=== PATIENT | female | born 1950 | race Caucasian/White ===

== ENCOUNTER 2024-06-08 16:22 | Outpatient (CLI) | payer MEDICARE, SELFPAY | END 2024-06-08 16:23 | disposition home or self-care (01) | PROVIDERS: PCP Family Medicine; Visit Provider Family Medicine | DX: E03.9 Hypothyroidism, unspecified (principal); K62.3 Rectal prolapse; M54.9 Dorsalgia, unspecified | CPT/HCPCS: 80053; 84443 ==

== ENCOUNTER 2024-07-12 11:20 | Outpatient (CLI) | payer MEDICARE, SELFPAY | END 2024-07-12 11:21 | disposition home or self-care (01) | LOC: NFLDREF 07-13 09:36 | PROVIDERS: PCP Family Medicine; Referring Provider Family Medicine; Visit Provider Family Medicine | DX: E78.00 Pure hypercholesterolemia, unspecified (principal) | CPT/HCPCS: 80061 ==

== ENCOUNTER 2024-07-24 09:48 | Outpatient (CLI) | payer MEDICARE, SELFPAY ==
--- NOTE | 2024-07-24 10:15 | CRLHL7_ITS ---
For Patients: As a result of the 21st Century Cures Act, medical imaging exams and procedure reports are released immediately into your electronic medical record. You may view this report before your referring provider. If you have questions, please contact your health care provider. EXAM: MRI OF THE RIGHT SHOULDER, WITHOUT CONTRAST CLINICAL INDICATION: Shoulder pain. PRIOR SURGERY: None reported. COMPARISON PLAIN FILMS: None available at time of interpretation. COMPARISON CROSS-SECTIONAL IMAGING STUDIES: None available at time of interpretation. TECHNICAL: Axial, sagittal oblique and coronal oblique T1, PD, PD FS and T2-weighted images. 1.5 Tatiana MR scanner. Shoulder surface coil. FINDINGS: GLENOHUMERAL JOINT: Effusion/Cyst: Small joint effusion. No synovitis. No paralabral or periarticular cyst or ganglion. Humeral Head Articular Cartilage: No osteochondral lesion or abnormality. Glenoid Articular Cartilage: No osteochondral lesion or abnormality. Loose Bodies: No appreciable loose bodies. Capsule: No convincing evidence of adhesive capsulitis or capsular injury. OSSEOUS STRUCTURES: No fracture, marrow edema or marrow replacement process. CORACOACROMIAL ARCH: Acromial Morphology: Type 1 acromial morphology. No abnormal lateral or anterior downward sloping of the acromion. No os acromiale. No significant subacromial spur. Lateral acromial thickness is 6 mm. Acromiohumeral Interval: The acromiohumeral interval is adequately patent. At its narrowest, the interval measures 5 mm. No abnormal thickening of the coracoacromial ligament. Coracohumeral Interval: The coracohumeral interval is normal. At its narrowest, the coracohumeral interval measures 10 mm. Coracoid index is less than 10 mm. ACROMIOCLAVICULAR JOINT REGION: AC Joint: Minor capsular edema with upper normal width. Ligaments: The coracoclavicular ligaments are intact. BURSAE: Subacromial-Subdeltoid: Moderate volume of fluid and some strandy synovitis. Subcoracoid: No abnormal bursal edema, thickening or bursal fluid. ROTATOR CUFF TENDONS AND MUSCLES AND DELTOID: Supraspinatus: Degenerative irregular full-thickness tearing anterior distal tendon with anterior to posterior greatest diameter 13 mm in greatest retraction less than a centimeter. Bursal tearing in the posterior distal tendon and footplate. Intermediate signal tendinosis proximal tendon with articular fraying. Grade 1 muscle atrophy. Some very subtle increased T2 signal. Infraspinatus: Tendinosis in the distal tendon without discrete tear. Some edema in the muscle. Minor grade 1 atrophy. Teres Minor: No tendinosis, tendon tearing, muscle atrophy or muscle edema. Subscapularis: Prominent tendinosis and interstitial tearing at the insertion and shallow fraying throughout the tendon. No muscle atrophy. Deltoid: No muscle atrophy or edema. BICEPS TENDON, LONG HEAD: Slight medial subluxation onto the inserting subscapularis suggesting partial tear in the rotator interval and biceps carolyn. Subluxed tendon as elongated morphology from partial tearing and marginal tendinosis. Small amount of tenosynovitis distally. Biceps anchor is intact. GLENOID LABRUM: Patchy intermediate signal mucoid change in degenerative tearing superior labrum. Remainder intact. OTHER FINDINGS: There is no abnormality within the suprascapular or spinoglenoid notches nor within the quadrilateral space. No axillary adenopathy or mass. IMPRESSION: 1. Full-thickness tear of the supraspinatus into the rotator interval. Prominent tendinosis and partial tearing proximal supraspinatus. 2. Partial disruption biceps carolyn with slight medial subluxation of the biceps. Mucoid degeneration and degenerative tearing superior labrum. 3. Moderately prominent tendinosis and shallow marginal tearing subscapularis. 4. Moderate infraspinatus tendinosis without significant tear. 5. Moderately large effusion between glenohumeral joint and subacromial/subdeltoid bursa. Dictated by Rolly Welch MD @ 07/24/2024 2:25:39 PM (Electronically Signed)
== END 2024-07-24 09:49 | disposition home or self-care (01) ==
PROVIDERS: PCP Family Medicine; Visit Provider Family Medicine
DX: M25.511 Pain in right shoulder (principal); M75.101 Unspecified rotator cuff tear or rupture of right shoulder, not specified as traumatic; S43.431A Superior glenoid labrum lesion of right shoulder, initial encounter; M25.411 Effusion, right shoulder; S46.911A Strain of unspecified muscle, fascia and tendon at shoulder and upper arm level, right arm, initial encounter
CPT/HCPCS: 73221

== ENCOUNTER 2024-08-17 06:02 | Day surgery (SDC) | payer MEDICARE, SELFPAY ==
[2024-08-17] VITALS (21 sets, daily range): BP systolic 103–157; BP diastolic 57–97; PULSE 81–92; RESP 15–18; TEMP 36.2–37.4; O2SAT 91–98; BMI 22.9
[2024-08-17] MEDS: MIDAZOLAM HCL 1 MG/ML inj IVP (06:11)
[2024-08-17] MEDS: fentaNYL 100 MCG/2 ML inj IVP (06:11)
[2024-08-17] MEDS: LACTATED RINGERS 1000 ML 1,000 ML 100 ML IV ×2 (06:15→10:50)
[2024-08-17] MEDS: SODIUM CHLORIDE 0.9 % (FLUSH) 10 ML SYRINGE IVF (06:53)
--- NOTE | 2024-08-17 07:17 | W.PM.H&PU ---
History & Physical Update History & Physical Update H&P Reviewed and patient assessed: No changes noted
--- NOTE | 2024-08-17 07:17 | PM.ORPRC ---
Procedure Note Date of procedure: 08/17/24 Procedure: PREOPERATIVE DIAGNOSES: 1. Right shoulder rotator cuff tear 2. Right acromioclavicular joint osteoarthritis POSTOPERATIVE DIAGNOSES: 1. Right shoulder rotator cuff tear - supraspinatus and upper subscapularis 2. Right acromioclavicular joint osteoarthritis NAME OF OPERATION: 1. Right shoulder arthroscopic rotator cuff repair (supraspinatus and upper subscapularis). 2. Right shoulder arthroscopic distal clavicle excision. 3. Right shoulder arthroscopic biceps tenodesis. 4. Right shoulder arthroscopic bursectomy, subacromial decompression/partial acromioplasty. SURGEON: Angelo Mendoza MD SINGE MACHINE OPERATOR: Mildred Avalos P.A.-C.. An virtual customer assistant was critical for this case to aide in patient positioning, suture manipulation, arm positioning, instrument positioning, and closure. ANESTHESIA: General plus preoperative supraclavicular block. IMPLANTS: Arthrex 4.75 mm knotless BioComposite Loop 'N' Tack Tenodesis implant; Arthrex BioComposite 4.75 mm knotless SwiveLock anchors x2; Arthrex 5.5 mm BioComposite SwiveLock anchors x2. COMPLICATIONS: None ESTIMATED BLOOD LOSS: 5 mL INDICATIONS: The patient is a pleasant, 73-year-old female who has experienced right shoulder pain and weakness that has been increasing in recent time. Physical exam and imaging were consistent with a rotator cuff tear. Given these findings and failure to improve with nonoperative management, recommendation was made for surgery. FINDINGS: Exam under anesthesia revealed stable shoulder with full range of motion. The diagnostic arthroscopy revealed grade 1 and grade 2 chondral changes of the glenoid and humeral head. There was partial articular sided tearing of the upper subscapularis with medial subluxation of biceps tendon. Mild tendinosis and partial-thickness tearing of the long head of the biceps tendon. Anterior, posterior, superior labrum were intact. Full-thickness tear of the supraspinatus which measured approximately 2 cm in the anterior-posterior direction and was minimally retracted. Infraspinatus was intact. No loose bodies were identified within the pouch or subscapularis recess. PROCEDURE: Following a thorough discussion of risks, benefits, and alternatives, consent was obtained and the operative shoulder was marked. A supraclavicular nerve block was performed by anesthesia staff in preop holding. The patient was brought to the operating room and placed supine on the operating table. Induction of anesthesia was completed, and patient was given IV Ancef preoperatively for prophylaxis. A surgical time-out was performed confirming patient identity, surgical site, and procedure. Patient was placed into the beach chair position. Head was placed in padded head baggage porter in neutral alignment, and all bony prominences were well padded. The operative shoulder and upper extremity were prepped and draped in the appropriate sterile fashion using ChloraPrep. Anterior, posterior, and lateral portal sites were injected with 0.25% Marcaine with epinephrine. The glenohumeral joint was injected with 40 mL of normal saline using and 18g spinal needle from a posterior approach. Posterior portal was established. Anterior portal was established after localization with a spinal needle and a 7.0 mm cannula was placed here. Diagnostic arthroscopy was then performed with findings as noted above. After diagnostic arthroscopy attention was 1st directed to the biceps tenodesis. A SwiftStitch Suture Passer was used to pass a FiberLink suture around and through the intra-articular portion of the long head of the biceps tendon. Biceps tenotomy was then performed at the attachment site superior labrum using arthroscopic scissor. Tenodesis was then completed by securing the FiberLink suture into the 4.75 mm knotless BioComposite SwiveLock anchor just proximal to the bicipital groove. Attention was then directed to repair of the upper subscapularis. The exposed footprint was debrided of soft tissue and lightly decorticated using the bone-cutting shaver. Knotless sutures were then passed through the upper subscapularis and tensioned securing the upper subscapularis back to its footprint. Remnant sutures were cut and removed. The subscapularis was visualized and confirmed to be anatomically reattached to its footprint. Camera was then moved to the subacromial space. A lateral portal was established after localization of spinal needle. Significant inflamed bursal tissue was encountered. A subacromial bursectomy was performed using combination of the motorized shaver and radiofrequency ablator. A subacromial decompression and acromioplasty were then performed using the bone-cutting shaver removing the downward sloping anterior acromion. The rotator cuff was thoroughly inspected and there was noted be a full-thickness tear of the supraspinatus which measured approximately 2 cm in the anterior-posterior direction was minimally retracted. The supraspinatus footprint was debrided of soft tissue and lightly decorticated with a bone-cutting shaver. A passport cannula was then placed into the lateral portal. Small stab incision was then placed lateral to the acromion. Through this incision a 2.6 mm knotless FiberTak anchor was placed into the anterior medial footprint of the supraspinatus. However, this anchor pulled out when tensioned and was subsequently replaced with a 4.75 mm knotless BioComposite SwiveLock anchor. A 2nd small stab incision was made lateral to the acromion. Through this incision, 4.75 mm knotless BioComposite SwiveLock anchor was placed into the posterior medial aspect of the supraspinatus footprint. Scorpion suture Passer in FiberLink suture were then used to passed suture through the rotator cuff tendon lateral to the musculotendinous junction. FiberLink was then used to shuttle each set of sutures through the rotator cuff. Medial row repair was then performed using the knotless sutures. Lateral row repair was then performed using two 5.5 mm BioComposite SwiveLock anchors. Prior to placement of the SwiveLock anchors, FiberLink suture was placed anteriorly and medially to secure further secure the rotator cuff. SwiveLock anchors were placed lateral to the supraspinatus footprint. Each SwiveLock anchor incorporated 1 set of sutures from the previous placed 2 medial row anchors and 1 FiberLink suture. After tensioning sutures and securing SwiveLock anchors in the position, excellent reduction of the rotator cuff tendon was achieved. Shoulder was then placed through range of motion rotator cuff was confirmed to be firmly fixed to its footprint. Remnant sutures were then cut and removed. Attention was then directed to the distal clavicle excision. 70 degree scope was placed into the lateral portal for visualization. Soft tissues of the distal clavicle were debrided with radiofrequency ablator. A distal clavicle excision was then performed using the 5.5 mm bur removing approximately 1 cm of the distal clavicle. After completion of the distal clavicle excision, excess fluid was drained, and cannulas instruments were removed from the subacromial space. Surgical incisions were then closed with 3-0 nylon simple interrupted sutures. Sterile dressings were applied and arm was placed into an abduction sling. Patient was then rotated back into the supine position, awoken from anesthesia and transferred to the PACU in stable condition. PLAN: 1. Discharged to home day of surgery. 2. Ice for pain and swelling. 3. Tylenol and oxycodone as needed for pain control. 4. Abduction sling at all times except for ROM and showering. -Remove sling several times daily for pendulum exercises finger, wrist, and elbow range of motion. 5. Follow-up in orthopedic clinic in 10-14 days for wound check and suture removal. 6. Will initiate formal physical therapy 2 weeks postoperatively per the standard rotator cuff repair protocol
--- NOTE | 2024-08-17 07:25 | SUR.PREOP ---
TIME?OUT:?0725 PT/RN/MDA?VERIFICATION?OF?SURGICAL?SITE,?PROCEDURE,?AND?CONSENT OBTAINED?PRIOR?TO?INVASIVE?PROCEDURE.r aaron edwards, pt and consent right shoulder
[2024-08-17] MEDS: CEFAZOLIN 2 GM INJ IVP (07:45)
[2024-08-17] MEDS: EPINEPHrine 1 MG in SODIUM CHLORIDE IRRIG SOLUTION 3,000 ML 9003 MG IRRIGATION ×7 (08:12→10:10)
--- NOTE | 2024-08-17 10:55 | W.ANESCHARGE ---
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
--- NOTE | 2024-08-17 11:57 | SUR.PHASEI ---
patient scoring 7 ian score. confirmed with receiving rn that it's ok to bring back to phase 2
--- NOTE | 2024-08-17 13:43 | P.NB_ITS ---
Nerve Block Nerve Block Time Seen by Provider: 07:28 Date Seen: 08/17/24 Type of block requested by surgeon for post-operative analgesia: supraclavicular Side: right Time out performed: Yes Verification of patient name: Yes Verification of date of : Yes Site marking: site marked Name of person performing procedure: Taj Continuous monitoring Was continuous monitoring of O2 sat, B/P, dispatcher refinery, recorded every 15 minutes?: Yes Procedure Checklist: sterile prep, needles and gloves Ultrasound guided. Images saved: Yes Medications given in 5ml increments after negative aspiration: Ropivicaine %: 0.5 mL: 20 Needle gauge: 22 Decadron (mg): 10 Precedex (mcg): 25 Patient tolerated procedure well: Yes Block Charges Block Charge (with Pro Fee): Brachial Plexus Use of Ultrasound Machine for Block: Yes- US Guidance/pain block
--- NOTE | 2024-08-17 13:43 | W.ANESCHARGE ---
Anesthesia Charges Start Date/Time Anesthesia Start Date: 08/17/24 Anesthesia Start Time: 07:34 Stop Date/Time Anesthesia Stop Date: 08/17/24 Anesthesia Stop Time: 10:56 Summary Extremes of Age - Over 70 or under 1: MDA
== END 2024-08-17 13:50 | disposition home or self-care (01) ==
LOC: OR 06:03
PROVIDERS: PCP Family Medicine; Visit Provider Orthopaedic Surgery
PROC: (CPT 29805; principal; 2024-08-17 07:30)
DX: M75.121 Complete rotator cuff tear or rupture of right shoulder, not specified as traumatic (principal); M19.011 Primary osteoarthritis, right shoulder; G89.18 Other acute postprocedural pain
CPT/HCPCS: 29827; 29828; 29826; 29824; 01630; 64415; 76942; 99100; C1713; J0171; J0330; J0690; J1100; J2250; J2371; J2405; J2704; J2795; J3010; J3490; J7120; L3670

== ENCOUNTER 2025-01-01 10:38 | Outpatient (CLI) | payer MEDICARE, SELFPAY ==
--- NOTE | 2025-01-01 11:00 | CRLHL7_ITS ---
For Patients: As a result of the Century Cures Act, medical imaging exams and procedure reports are released immediately into your electronic medical record. You may view this report before your referring provider. If you have questions, please contact your health care provider. INDICATION: Lung cancer screening. History of smoking. High risk patient with greater than 50 pack-year smoking history. TECHNIQUE: Low-dose lung cancer screening non-contrast CT chest. Dose reduction techniques were used. COMPARISON: None. FINDINGS: NODULES: 4.4 millimeter calcified granuloma left lower lobe. No additional nodules. LUNGS AND PLEURA: Emphysema. MEDIASTINUM: No enlarged lymph nodes. CORONARY ARTERY CALCIFICATION: Present. LIMITED UPPER ABDOMEN: Fatty atrophy of the pancreas. Incidental fat density within the right posterior lung base pleural space. MUSCULOSKELETAL: Postop changes to the right shoulder. Degenerative changes lower thoracic spine. IMPRESSION: Negative for lung cancer screening purposes. LUNG-RADS CATEGORY: 2: Benign. RADIOLOGIST RECOMMENDATION: Continue annual screening with low-dose CT chest in 12 months. Please note that all CT scans at this facility use dose modulation, iterative reconstruction, and/or weight-based dosing when appropriate to reduce radiation dose to as low as reasonably achievable. Dictated by Minh Pulido MD @ 01/01/2025 1:03:16 PM (Electronically Signed)
== END 2025-01-01 10:39 | disposition home or self-care (01) ==
LOC: CT 10:39
PROVIDERS: PCP Family Medicine; Visit Provider Family Medicine
DX: Z12.2 Encounter for screening for malignant neoplasm of respiratory organs (principal); Z87.891 Personal history of nicotine dependence
CPT/HCPCS: 71271

== ENCOUNTER 2025-04-03 12:41 | Outpatient (CLI) | payer MEDICARE, SELFPAY ==
--- NOTE | 2025-04-03 13:00 | CRLHL7_ITS ---
For Patients: As a result of the Century Cures Act, medical imaging exams and procedure reports are released immediately into your electronic medical record. You may view this report before your referring provider. If you have questions, please contact your health care provider. XR DXA Bone Mineral Density (BMD) Reason for exam: History of compression fracture. Screening. Current height (inches): 65.0 Weight (lbs.): 140.0 Menopause age: 54 Ethnicity: White 1. Have you had a previous hip or vertebral fracture? Yes. 2. Have you had any fractures during your adult life which did not result from significant trauma (e.g., auto accident)? Yes. 3. Did either of your parents have a hip fracture? No. 4. Do you smoke? No. 5. Have you ever taken Glucocorticoids? No. 6. Do you have rheumatoid arthritis? No. 7. Do you have secondary osteoporosis? No. 8. Do you drink 3 or more alcoholic drinks per day? No. 9. Are you being treated for osteoporosis? No. 10. Have you ever taken any of the following medications: Actonel, Evista, Fosamax, Miacalcin, Reclast, Boniva, Forteo, HRT (i.e., estrogen/hormone therapy), Protelos, Prolia, Vitamin D, Calcium, other ??? please specify. ANSWER: Yes; vitamin D and calcium. 11. Do you have any of the following medical conditions: Anorexia or bulimia, asthma or emphysema, end stage renal disease, hyperparathyroidism, any seizure disorders, cancer, inflammatory bowel diseases, hysterectomy, other ??? please specify. ANSWER: Yes; hysterectomy. 12. What was your maximum height (inches)? 67. 13. Do you perform weightbearing exercise regularly? No. 14. Do you regularly consume dairy products? Yes. 15. Do you drink caffeinated beverages? No. 16. At what age did your period start? 15. 17. Are you premenopausal? No. 18. How many full-term pregnancies have you had? 2. 19. Have you ever missed your period for more than 6 months in a row (not including or menopause)? Yes. TECHNIQUE: Bone mineral density study was performed using the [employer]. FINDINGS: The results of the study expressed as bone mineral density (BMD) are as follows: Lumbar Spine L3 to L4: BMD: 0.975 g/cm2. T-score: -1.1. Z-score: 1.2. Neck Left: BMD: 0.645 g/cm2. T-score: -1.8. Z-score: 0.1. Right: BMD: 0.700 g/cm2. T-score: -1.3. Z-score: 0.6. Total Left: BMD: 0.821 g/cm2. T-score: -1.0. Z-score: 0.6. Right: BMD: 0.758 g/cm2. T-score: -1.5. Z-score: 0.1. IMPRESSION: Osteopenia. TERESA SOTO M.D. Diagnostic/Nuclear Medicine Radiologist [email or web address] Transcribed: 4:[address]/Dictated by: Teresa Soto MD @ 04/04/2025 1:34:00 PM (Electronically Signed)
--- NOTE | 2025-04-03 13:40 | CRLHL7_ITS ---
For Patients: As a result of the Century Cures Act, medical imaging exams and procedure reports are released immediately into your electronic medical record. You may view this report before your referring provider. If you have questions, please contact your health care provider. INDICATION: bilateral screening mammogram, asymptomatic 74 y/o female COMPARISON: 03/29/2024, 11/25/2021, 10/07/2020 TECHNIQUE: CC and MLO views were obtained. These mammographic images have been obtained using full-field digital technique. These mammographic images were interpreted with the benefit of computer aided detection and tomosynthesis. BREAST COMPOSITION: There are scattered areas of fibroglandular density. FINDINGS: No suspicious findings. ASSESSMENT: BI-RADS 1 Negative RECOMMENDATION: Annual screening mammogram. A lay language report of this examination will be provided to the patient. Dictated by: Minh Pulido MD @ 04/05/2025 09:22:05 (Electronically Signed)
== END 2025-04-03 12:42 | disposition home or self-care (01) ==
LOC: RAD 12:42
PROVIDERS: PCP Family Medicine; Visit Provider Family Medicine
DX: Z12.31 Encounter for screening mammogram for malignant neoplasm of breast (principal); Z13.820 Encounter for screening for osteoporosis; M85.89 Other specified disorders of bone density and structure, multiple sites
CPT/HCPCS: 77063; 77067; 77080

== ENCOUNTER 2025-07-02 12:06 | Outpatient (CLI) | payer MEDICARE, SELFPAY | END 2025-07-02 12:07 | disposition home or self-care (01) | LOC: LKVREF 12:08 | PROVIDERS: PCP Family Medicine; Visit Provider Family Medicine | DX: E78.00 Pure hypercholesterolemia, unspecified (principal); E03.9 Hypothyroidism, unspecified; M81.0 Age-related osteoporosis without current pathological fracture; R53.83 Other fatigue | CPT/HCPCS: 80053; 80061; 84443 ==

== ENCOUNTER 2025-10-29 14:05 | Emergency (ER) | payer MEDICARE, SELFPAY ==
--- OUTSIDE RECORDS SUMMARY | 2025-10-29 14:09 | XMS_ITS | Clinical Summary ---
Author Organization [facility] Address [address] [place] [address] Care Team Providers Care Web Developer Programmer Name Role Phone Montse Lehman APRN, C.N.P., D.N.P., M.S.N. [place] Care Provider Source Comments Patient records contain information from all sites at [facility]. For routine questions regarding patient records, call [phone] during business hours, M-F 8:00 AM - 5:00 PM Central Time. Record requests for emergency care only can be directed to [phone] at any time.[facility] Allergies No known active allergies Medications * This document contains information received from the source organization and may not represent a complete record from that organization. aspirin [address] tablet Take 1 tablet by mouth daily. 4 Active aspirin-acetami nophen-caffeine (EXCEDRIN MIGRAINE) 250-250-65 mg per tablet Take 1 capsule by mouth every 8 (eight) hours as needed. Active multivitamin tablet Take 1 tablet by mouth. One a Day 50+ Active ascorbate calcium (VITAMIN C ORAL) 500 mg daily. 6 Active zinc gluconate 50 mg tablet Take 50 mg by mouth daily with breakfast. Active cyanocobalamin (VITAMIN B12) 250 mcg tablet Take 250 mcg by mouth daily. Active TURMERIC ORAL Take 500 mg by mouth. Active melatonin 5 mg tablet Take 5 mg by mouth. Takes 2 tablets at bedtime Active biotin (MERIBIN) 5 mg capsule Take 5 mg by mouth daily. Active omega 1-nar-zfq-fish oil 1,000 mg (120 mg-180 mg) capsule Take 1 capsule by mouth daily. Active fluticasone propion-salmete roL (Wixela Inhub) 100-50 mcg/actuation diskus inhaler Inhale 1 puff 2 (two) times a day. Rinse mouth with water after use to reduce aftertaste and incidence of candidiasis. Do not swallow. 60 each 11 4 Active Additional Information Patient taking differently:1 puff inhalationAs needed, Rinse mouth with water after use to reduce aftertaste and incidence of candidiasis. Do not swallow., Reported on 07/11/2024 acetaminophen-c affeine (EXCEDRIN_TENSI ON_HEADACHE) 500-65 mg per tablet Take 1 tablet by mouth every 6 (six) hours as needed for pain. Active pravastatin (PRAVACHOL) 20 mg tabletIndicatio ns:Hypercholest erolemia Take 1 tablet (20 mg total) by mouth daily. 90 tablet 3 4 Active levothyroxine 75 mcg tabletIndicatio ns:Hypothyroidi sm Take 1 tablet (75 mcg total) by mouth daily. 90 tablet 3 4 Active alendronate (Fosamax) 70 mg tablet TAKE 1 TABLET BY MOUTH EVERY 7 DAYS. TAKE WITH 8 OUNCES OF WATER, ON AN EMPTY STOMACH. REMAIN UPRIGHT OF 30 MINUTES 12 tablet 3 5 Active gabapentin (Neurontin) 300 mg capsuleIndicati ons:Restless Leg Syndrome TAKE 1 CAPSULE BY MOUTH 2 HOURS BEFORE BEDTIME, MAY INCREASE TO 2 CAPSULES IF NEEDED 180 capsule 5 Active Active Problems Problem Noted Date Diagnosed Date History Of Falling 07/11/2024 Restless Leg Syndrome 10/07/2020 Overview (10/07/2020): Maintained on gabapentin at bedtime Assessment & Plan (10/07/2020 12:21 PM INSTRUMENTAL TEACHER): Well controlled on current dose of gabapentin 300 mg daily. Continue with this medication. Osteopenia 10/07/2020 Overview (10/07/2020): Last bone density scan done July 2019 Assessment & Plan (10/07/2020 12:22 PM INSTRUMENTAL TEACHER): Continue with calcium and vitamin-D supplements. Plan on rechecking bone density scan in 2023. Hypothyroidism 10/12/2018 Overview (10/06/2020): Maintained on levothyroxine Assessment & Plan (10/06/2020 9:11 AM INSTRUMENTAL TEACHER): TSH due to be updated and ordered today Incomplete Bladder Emptying 09/03/2014 Incontinence Urinary Stress And Urge 09/03/2014 Colitis Collagenous 07/25/2014 Assessment & Plan (10/07/2020 12:21 PM INSTRUMENTAL TEACHER): Overall stable. No longer requiring oral budesonide. Using loperamide once daily and this seems to control her symptoms. Follow-up at with GI as needed. Diverticulosis Colon 06/25/2014 Incontinence Fecal 06/25/2014 Prolapse Pelvic Floor Global 09/28/2011 Hyperlipidemia 02/05/2011 Overview (10/06/2020): Maintained on pravastatin Assessment & Plan (10/07/2020 12:21 PM INSTRUMENTAL TEACHER): Lipid panel ordered to be done with fasting labs. Smoking Tobacco Use Personal History 01/22/2011 Bronchitis Chronic 09/17/2010 Overview (10/07/2020): Maintained on Advair. Using albuterol as needed Assessment & Plan (10/07/2020 12:21 PM INSTRUMENTAL TEACHER): Reports symptoms are stable without any worsening shortness of breath. She has not needed her albuterol in quite some time. Currently using Advair once daily and feels this is adequate in controlling her symptoms. Resolved Problems Problem Noted Date Diagnosed Date Resolved Date Fracture Wrist Closed Subsequent Left 04/29/2023 01/26/2024 Fracture Wrist Closed Subsequent Right 04/29/2023 01/26/2024 Fracture Vertebra Compressio n Lumbar Trauma Closed Initial 06/25/2022 01/26/2024 Pain Arm Right 10/07/2020 10/28/2021 Assessment & Plan (10/07/2020 12:22 PM INSTRUMENTAL TEACHER): Intermittent right arm pain with some decreased range of motion. Symptoms most consistent with bicep tendinitis. We reviewed conservative management for this including stretching, fgbc-jdo-faugcxq pain medications such as Tylenol ibuprofen heat and ice. I also provided her with a referral today for physical therapy if symptoms continue to persist. Encounters Date Type Department Care Team Description 10/29/[address] [facility] PCP [facility] Montse Kidd APRN, C.N.P., D.N.P., M.S.N. Hypothyroidism 07/31/[address] [facility] PCP [facility] Montse Kidd APRN, C.N.P., D.N.P., M.S.N. Screening Mammogram Breast Cancer from Last 3 Months Immunizations Immunization Administration Dates Next Due DTaP (Infanrix, Tripedia) 03/31/2007 H1N1 Inj 11/11/2009 HZV (ZOSTAVAX) 09/28/2012 Influenza Split 09/27/2006, 5,10/29/2004,2000,11/22/2000 Influenza high dose QV(65 ye ars or older) (PF) 08/10/2023,08/31/2022,08/25/2021,2019 Influenza, Seasonal, Injectable 10/05/2007 Influenza, Unspecified 09/23/2016,2014,09/17/2014,2012,08/29/2012,08/26/2011,09/07/2010 PCV13 04/01/2015 PPSV23 11/26/2021,06/11/2016 RZV (SHINGRIX) 09/14/2019,06/13/2019 SARS-COV-2 (COVID-19) - MODE RNA (12 YEARS AND OLDER) Fall Seasonal 01/26/2024 SARS-COV-2 (COVID-19) - MODERNA(Discontinued) 02/24/2021,01/27/2021 Tdap 07/12/2025,06/11/2016,03/31/2007 influenza trivalent high dos e (HD)(PF) 08/31/2025,07/29/2024,08/31/2020,2018,08/30/2018 influenza trivalent vaccine (6 months and older)(PF) 09/08/2009,09/26/2008 influenza vaccine quad (FLUZONE/FLUARIX) (6 months and older)(PF) 09/02/2017,09/23/2016,08/30/2015,2008,09/08/2009,09/26/2008,10/05/2007,1 ,10/12/2005,10/29/2004, 001,11/22/2000 Family History Medical History Relation Name Comments No Known Problems Brother 1 Marty No Known Problems Brother 2 Adrien No Known Problems Daughter Lung disease Father Smoker Father Crohn's disease Mother Transient ischemic attack Mother No Known Problems Sister No Known Problems Son Relation Name Status Comments Brother 1 Marty Alive Brother 2 Adrien Alive Daughter Alive Father Mother Sister Alive Son Alive Social History Tobacco Use Types Packs/Day Years Used Date Smoking Tobacco: Never Cigarettes 0 Qu it: 2019 Passive Smoke Exposure: Yes Smokeless Tobacco: Never Tobacco Cessation:Counseling Given: Not Answered Comments:Started smoking cigarettes age 15 Alcohol Use Standard Drinks/Week Comments Yes 2 (1 standard drink = 0.6 oz pur e alcohol) glass a wine nightly [facility] [employer] Answer Date Recorded In the past 12 months has e [employer], gas, oil, or water [employer] threatened to shut off services in your home? No 03/29/2024 Humiliation, Afraid, Rape, and Kick questionnair e Answer Date Recorded Within the last year, have y ou been afraid of your partner or ex-partner? No 06/22/2022 Within the last year, have y ou been humiliated or emotionally abused in other ways by your partner or ex-partner? No Within the last year, have y ou been kicked, hit, slapped, or otherwise physically hurt by your partner or ex-partner? No 06/22/2022 Within the last year, have y ou been raped or forced to have any kind of sexual activity by your partner or ex-partner? No 06/22/2022 Hunger Vital Sign Answer Date Recorded Within the past 12 months, y ou worried that your food would run out before you got the money to buy more. Never true 03/29/20 24 Within the past 12 months, t he food you bought just didn't last and you didn't have money to get more. Never true 03/29/2024 PRAPARE - Transportation Answer Date Re corded In the past 12 months, has l ack of transportation kept you from medical appointments or from getting medications? No 12/2023 In the past 12 months, has l ack of transportation kept you from meetings, work, or from getting things needed for daily living? No 03/29/2024 Housing Stability Answer Date Recorded What is your living situation today? I have a [facility] place to live 03/29/2024 Education Answer Date Recorded What is the highest level of school you have completed or the highest degree you have received? 12th grade 06/13/2019 Comments No Sex and Gender Information Value Date Recorded Sex Assigned at Female 10/11/2018 9:16 AM INSTRUMENTAL TEACHER Legal Sex Female 4:11 AM INSTRUMENTAL TEACHER Gender Identity Female 10/11/2018 9:16 AM INSTRUMENTAL TEACHER Sexual Orientation Straight 10/11/2018 9: 16 AM INSTRUMENTAL TEACHER Occupation Industry Job Start Date Job End Date Not on file Not on file Not on file Not on file Last Filed Vital Signs Vital Sign Reading Time Taken Comments Blood Pressure 115/76 07/11/2024 2:46 PM CDT Pulse 97 07/11/2024 2:46 PM CDT Temperature 37.1 C (98.8 F) 07/11/2024 2:46 PM CDT Respiratory Rate 16 04/03/2024 10:5 6 AM CDT Oxygen Saturation 95% 04/03/2024 10: 56 AM CDT Inhaled Oxygen Concentration - - Weight 61.6 kg (135 lb 12.9 oz) 07/11/2024 2:46 PM CDT Height 166 cm (5' 5.35) 04/03/2024 10: 56 AM CDT Body Mass Index 22.35 04/03/2024 10:56 AM CDT Plan of Treatment Health Maintenance Due Date Last Done Comments CT Colonography 1950 Tobacco Cessation counseling 12/24/2020 12/24/2019 Visit: Medicare Annual Wellness 02/03/2024 02/01/2023 Depression Screening (Annual PHQ-2) 11/28/2024 Fall Risk Screen (Annual) 11/28/2024 Mammogram 03/29/2025 03/29/2024, 10/29, 10/07/2020, Additional history exists Thyroid Stimulating Hormone (TSH) test for thyroid function 05/29/2025 05/29/2024, 03/29/2024, 02/01/2023, Additional history exists Visit: Annual, age 65+ (or Medicare and <65) 07/11/2025 07/11/2024 COVID-19 Vaccine ( season) 2025 07/29/2024, 01/26/2024, 08/31/2022, Additional history exists Cologuard 02/27/2027 02/28/2024 Fasting Glucose for Diabetes Screening 03/29/2027 03/29/2024, 10/20/2020, 06/22/2019, Additional history exists Lipid (Cholesterol) Screening 03/29/2029 03/29/2024, 02/01/2023, 10/28/2021, Additional history exists Colonoscopy 04/11/2031 04/11/2024, 06/26/2014 Colorectal Cancer Surveillance 04/11/2031 DTaP,Tdap,and Td Vaccines (5 - Td or Tdap) 07/12/2035 07/12/2025, 06/11/2016, 03/31/2007, Additional history exists Hepatitis C Screening Completed 10/11/2018 Zoster Vaccines Completed 09/14/2019, 05/28, 09/28/2012 Pneumococcal vaccine (50+ years) Completed 11/26/2021, 06/11/2016, 04/01/2015 Colonoscopy After Positive Cologuard Discontinued 04/11/2024 Influenza Vaccine Completed 08/31/2025, , 08/10/2023, Additional history exists IPV Vaccines Aged Out No longer eligi ble based on patient's age to complete this topic Procedures Procedure Name Priority Date/Time Associated Diagnosis Comments THYROID-STIMULATING HORMONE-SENSITIVE (S-TSH) Routine 05/29/2024 10:34 AM CDT Hypothyroidism GLUCOSE, FASTING, S/P Routine 03/29/2024 10:47 AM CDT Hypothyroidism Hyperlipidemia Bronchitis Chronic (HCC) Osteopenia Restless Leg Syndrome Colitis Collagenous Prolapse Pelvic Floor Global Screening Mammogram Breast Cancer Screening Examination Diabetes Mellitus LIPID PANEL, S Routine 03/29/2024 10:47 AM CDT Hypothyroidism Hyperlipidemia Bronchitis Chronic (HCC) Osteopenia Restless Leg Syndrome Colitis Collagenous Prolapse Pelvic Floor Global Screening Mammogram Breast Cancer Screening Examination Diabetes Mellitus BI BREAST SCREENING BILATERAL WITH TOMOSYNTHESIS RAD - Routine (most inpatients and all outpatients) 03/29/2024 10:18 AM CDT Hypothyroidism Hyperlipidemia Bronchitis Chronic (HCC) Osteopenia Restless Leg Syndrome Colitis Collagenous Prolapse Pelvic Floor Global Screening Mammogram Breast Cancer Screening Examination Diabetes Mellitus COLOGUARD Routine 02/28/2024 9:00 AM CDT Screening Cancer Colon HCV AB SCRN W/REFLEX TO HCV PCR, S Routine 10/11/2018 10:30 AM INSTRUMENTAL TEACHER Screening Test Laboratory COLONOSCOPY Routine 06/26/2014 9:07 AM CDT from Last 3 Months or Most Recently Relevant to Health Maintenance Results * S-TSH (Thyroid-Stimulating Hormone - Sensitive) (05/29/2024 10:34 AM CDT) TSH, Sensitive 0.5 0.3 - 4.2 mIU/L 05/29/2024 11:30 AM CDT [facility] Blood (Blood, Venous) 05/29/2024 10:34 AM CDT 05/29/2024 10:47 AM CDT us Lilia Bolaños APRN, C.N.P., D.N.P. LAB BLOOD AD D-ON Final Result [facility] [address] [place] [address], [place] [facility] [facility] [place] [address] [place] [address] * (ABNORMAL) Lipid Panel (03/29/2024 10:47 AM CDT) Triglycerides 169(H) mg/dL 03/29/2024 11:30 AM CDT OWAT Comment: ----REFERENCE VALUE---- Normal: <150 mg/dL Borderline High: 150-199 mg/dL High: 200-499 mg/dL Very High: > or =500 mg/dL Cholesterol, Total 172 mg/dL 2023 11:30 AM CDT OWAT Comment: ----REFERENCE VALUE---- Desirable: < 200 mg/dL Borderline High: 200 - 239 mg/dL High: > or = 240 mg/dL Cholesterol, LDL, Calculated 90 mg/dL 03/29/2024 11:30 AM CDT [facility] Comment: ----REFERENCE VALUE---- Desirable: <100 mg/dL Above Desirable: 100-129 mg/dL Borderline High: 130-159 mg/dL High: 160-189 mg/dL Very High: >=190 mg/dL ----ADDITIONAL INFORMATION---- LDL cholesterol calculated using the Valladares/NIH equation. Cholesterol, HDL 53 >=50 mg/dL 03/29/20 11:30 AM CDT OWAT Cholesterol, Non-HDL, Calculated 119 mg/dL 03/29/2024 11:30 AM CDT [facility] Comment: ----REFERENCE VALUE---- Desirable: <130 mg/dL Above Desirable: 130-159 mg/dL Borderline High: 160-189 mg/dL High: 190-219 mg/dL Very High: > or =220 mg/dL Fasting (8 HR or more) Yes 03/29/2024 10:58 AM CDT [facility] Blood (Blood, Peripheral Draw) 03/29/2024 10:47 AM CDT 03/29/2024 10:58 AM CDT us Montse Lehman APRN, C.N.P., D.N.P., M.S.N. LAB B LOOD ADD-ON Final Result [facility] [address] [place] [address], [facility] OW[facility] [place] [address] [place] [address] * Glucose, Fasting (03/29/2024 10:47 AM CDT) Glucose, P 91 70 - 100 mg/dL 03/29/2024 11:30 AM CDT OW[facility] Last Intake 17 hr 03/29/2024 10:59 AM CDT [facility] Blood (Blood, Venous) 03/29/2024 10:47 AM CDT 03/29/2024 10:58 AM CDT us Montse Lehman APRN, C.N.P., D.N.P., M.S.N. LAB B LOOD NON ADD-ON Final Result [facility] [address] [place] [address], [place] [facility] [place] [address] [place] [address] * BI Breast Screening Bilateral with Tomosynthesis (03/29/2024 10:18 AM CDT) Anatomical Region Laterality Modality Breast, Breast Imaging RST L OS, Breast Imaging ARZ LOS, Breast Imaging FLA LOS Bilateral Mammography Impressions 03/29/2024 10:47 AM CDT Negative. RECOMMENDATION: Annual Screening Mammogram ASSESSMENT: BI-RADS: 1: Negative. Narrative 03/29/2024 10:47 AM CDT EXAM: BI BREAST SCREENING BILATERAL WITH TOMOSYNTHESIS Current study was evaluated with a Computer Aided Detection (CAD) system. INDICATION: Screening mammogram. COMPARISON: Prior exam(s) were available and reviewed for comparison. DENSITY: b. There are scattered areas of fibroglandular density. FINDINGS: No mammographic findings of malignancy. Procedure Note José Luis Rg M.D. - 03/29/2024 EXAM: BI BREAST SCREENING BILATERAL WITH TOMOSYNTHESIS Current study was evaluated with a Computer Aided Detection (CAD) system. INDICATION: Screening mammogram. COMPARISON: Prior exam(s) were available and reviewed for comparison. DENSITY: b. There are scattered areas of fibroglandular density. FINDINGS: No mammographic findings of malignancy. IMPRESSION: Negative. RECOMMENDATION: Annual Screening Mammogram ASSESSMENT: BI-RADS: 1: Negative. us Montse Lehman APRN, C.N.P., D.N.P., M.S.N. IMG B I PROCEDURES Final Result * (ABNORMAL) Cologuard - Sent Out Lab (02/28/2024 9:00 AM CDT) Result Positive( A) Negative 03/04/2024 9:12 AM CDT [facility] Comment: POSITIVE TEST RESULT. A positive Cologuard result should be followed with a colonoscopy or visual examination of the colon. The normal value (reference range) for this assay is negative. TEST DESCRIPTION: Composite algorithmic analysis of stool DNA-biomarkers with hemoglobin immunoassay. Quantitative values of individual biomarkers are not reportable and are not associated with individual biomarker result reference ranges. Cologuard is intended for colorectal cancer screening of adults of either sex, 45 years or older, who are at average-risk for colorectal cancer (CRC). Cologuard has been approved for use by the U.S. FDA. The performance of Cologuard was established in a cross sectional study of average-risk adults aged 50-84. Cologuard performance in patients ages 45 to 49 years was estimated by sub-group analysis of near-age groups. Colonoscopies performed for a positive result may find as the most clinically significant lesion: colorectal cancer [4.0%], advanced adenoma (including sessile serrated polyps greater than or equal to 1cm diameter) [20%] or non- advanced adenoma [31%]; or no colorectal neoplasia [45%]. These estimates are derived from a prospective cross-sectional screening study of 10,000 individuals at average risk for colorectal cancer who were screened with both Cologuard and colonoscopy. (Eduardo Love al, N Engl J Med 2014;370(14):7882-0365.) Cologuard may produce a false negative or false positive result (no colorectal cancer or precancerous polyp present at colonoscopy follow up). A negative Cologuard test result does not guarantee the absence of CRC or advanced adenoma (pre-cancer). The current Cologuard screening interval is every 3 years. ([place] Cancer Society and U.S. Multi-Society Task Force). Cologuard performance data in a 10,000 patient pivotal study using colonoscopy as the reference method can be accessed at the following location: www.[employer]/results. Additional description of the Cologuard test process, warnings and precautions can be found at www.cologuard.com. Stool (Stool) 02/28/2024 9:0 0 AM CDT 02/29/2024 1:31 PM CDT us Montse Lehman APRN, C.N.P., D.N.P., M.S.N. LAB BODY FLUIDS AND STOOLS ORDERABLES Final Result Performing Organization Address City/[facility]/ZIP Co de Phone Number [employer] [address] [place] [id number] [facility] [employer] [address] [place] [address], [address] [place] [address] * HCV Ab Scrn w/Reflex to HCV PCR, Serum (10/11/2018 10:30 AM INSTRUMENTAL TEACHER) HCV Ab Screen, S Negative Negative 10/12/2018 7:59 AM INSTRUMENTAL TEACHER [facility] Comment:Iotzan-sz-edeiob rat io is <1.00. Blood (Blood, Venous) 10/11/2018 10:30 AM INSTRUMENTAL TEACHER 10/12/2018 6:41 AM INSTRUMENTAL TEACHER us Janice Saavedra M.D. LAB MICROBIOLOGY - BLOOD ORDERABLES Final Result [facility] [address] [address] * Colonoscopy (06/26/2014 9:07 AM CDT) Anatomical Region Laterality Modality Other 06/26/2014 9:07 AM CDT us Harinder Angelo M.D. GI PROCEDURE ORDERABLES Fin al Result from Last 3 Months or Most Recently Relevant to Health Maintenance Insurance [facility] Care Teams Web Developer Programmer Relationship Specialty Start Date End Date Montse Lehman APRN, C.N.P., D.N.P., M.S.N. [address] [place] [id number] PCP - General Internal Medicine 11/07/23
--- OUTSIDE RECORDS SUMMARY | 2025-10-29 14:09 | XMS_ITS | Encounter Summary ---
Author Organization [facility] Address [address] [place] [address] Care Team Providers Care Interior Surface Insulation Worker Name Role Phone Montse Lehman APRN, C.N.P., D.N.P., M.S.N. [facility] Care Provider Encounter Details Date Type Department Care Team (Late st Contact Info) Description 10/29/2025 Orders Only [facility] PCP [facility] Montse Lehman APRN, C.N.P., D.N.P., M.S.N. [address] [place] [phone] Hypothyroidism Social History Tobacco Use Types Packs/Day Years Used Date Smoking Tobacco: Never Cigarettes 0 Qu it: 2019 Passive Smoke Exposure: Yes Smokeless Tobacco: Never Comments:Started smoking cig arettes age 15 Alcohol Use Standard Drinks/Week Comments Yes 2 (1 standard drink = 0.6 oz pur e alcohol) glass a wine nightly [facility] Utilities Answer Date Recorded In the past 12 months has [employer], gas, oil, or water [employer] threatened to shut off services in your [...] your living situation today? [facility] a [facility] place to live 03/29/2024 Education Answer Date Recorded What is the highest level of school you have completed or the highest degree you have received? 12th grade 06/13/2019 Comments No Sex and Gender Information Value Date Recorded Sex Assigned at Female 10/11/2018 9:16 AM TOURING PRODUCTION MANAGER Legal Sex Female 4:11 AM TOURING PRODUCTION MANAGER Gender Identity Female 10/11/2018 9:16 AM TOURING PRODUCTION MANAGER Sexual Orientation Straight 10/11/2018 9: 16 AM TOURING PRODUCTION MANAGER Occupation Industry Job Start Date Job End Date Not on file Not on file Not on file Not on file documented as of this encounter Plan of Treatment Scheduled Orders Name Type Priority Associated Diagnoses Orde r Schedule S-TSH (Thyroid-Stimulating Hormone - Sensitive) Lab Routine Hypothyroidism Expected: 11/12/2025, Expires: 04/17/2026 documented as of this encounter Visit Diagnoses Diagnosis Hypothyroidism documented in this encounter Care Teams Interior Surface Insulation Worker Relationship Specialty Start Date End Date Montse Lehman APRN, C.N.P., D.N.P., M.S.N. [address] [place] [phone] PCP - General Internal Medicine 11/07/23 documented as of this encounter
--- OUTSIDE RECORDS SUMMARY | 2025-10-29 14:09 | XMS_ITS | Clinical Summary ---
Author Organization [facility] Address [address] [place] [id number] Care Team Providers Care Automotive Teacher Name Role Phone Montse Lehman NP Primary Care Provider [phone] Allergies No known active allergies Medications aspirin 81 mg tabletIndicat ions:myocardi al infarction prevention Take 81 mg by mouth once daily with a meal. Indications: MYOCARDIAL INFARCTION PREVENTION Act kaelyn ACETAMINOPHEN /CAFFEINE (EXCEDRIN TENSION HEADACHE ORAL)Indicati ons:headaches . Take 1 capsule by mouth every 6 hours if needed. Indications: headaches. Active multivitamin (MVI) tabletIndicat ions:vitamin deficiency prevention Take 1 tablet by mouth once daily. Indications: VITAMIN DEFICIENCY PREVENTION Act kaelyn pravastatin (PRAVACHOL) 20 mg tabletIndicat ions:hypercho lesterolemia Take 20 mg by mouth at bedtime. Indications: HYPERCHOLESTEROLEMIA Acti ve CHOLECALCIFER OL, VITAMIN D3, (VITAMIN D-3 ORAL)Indicati ons:vitamin d supplement Take 1,000 Units by mouth 2 times daily. Indications: vitamin d supplement Active albuterol HFA (PROAIR HFA) 90 mcg/actuation inhalerIndica tions:wheezin g or shortness of breath Inhale 2 Puffs by mouth 4 times daily if needed. Indications: wheezing or shortness of breath Active aspirin-aceta minophen-caff eine (EXCEDRIN EX STR) 250-250-65 mg Take 1 Capsule by mouth every 8 hours if needed. Active Biotin 5 mg capsule Take 5 mg by mouth once daily. Active cyanocobalami n (VITAMIN B12) 250 mcg tablet Take 250 mcg by mouth once daily. Active DOCOSAHEXAENO IC ACID ORAL Take 1 Capsule by mouth once daily. Active fluticasone propion-salme teroL (ADVAIR) 100-50 mcg/dose diskus inhaler Inhale 1 Puff by mouth two times daily. 01/26/20 24 Active gabapentin (NEURONTIN) 300 mg capsule TAKE 1 CAPSULE BY MOUTH 2 HOURS BEFORE BEDTIME (MAY INCREASE TO 2 CAPSULES IF NEEDED) 02/23/20 24 Active levothyroxine (SYNTHROID) 88 mcg tablet Take 88 mcg by mouth once daily. 03/29/20 24 Active melatonin 5 mg tab tablet Take 5 mg by mouth at bedtime. Active zinc gluconate 50 mg tablet Take 50 mg by mouth once daily. Active Active Problems Problem Noted Date Diagnosed Date History of falling 07/11/2024 Restless leg syndrome 10/07/2020 Overview (07/12/2025): Maintained on gabapentin at bedtime Osteopenia 10/07/2020 Overview (07/12/2025): Last bone density scan done July 2019 Hypothyroidism 10/12/2018 Overview (07/12/2025): Maintained on levothyroxine Mixed stress and urge urinary incontinence 09/03 Incomplete bladder emptying 09/03/2014 Collagenous colitis 07/25/2014 Incontinence of feces 06/25/2014 Diverticulosis of colon 06/25/2014 Uterine prolapse without mention of vaginal wall prolapse 09/28/2011 Hyperlipidemia 02/05/2011 Overview (07/12/2025): Maintained on pravastatin Personal history of tobacco use, presenting hazards to health 01/22/2011 Bronchitis, chronic 09/17/2010 Overview (07/12/2025): Maintained on Advair. Using albuterol as needed Immunizations Immunization Administration Dates Next Due Influenza A (H1N1), Inactiva rachel (Age >=3 Years) 11/11/2009 Influenza, IIV3 (Age >=3 years) 08/29/2012,08/26,09/08/2009 Tdap 07/12/2025,03/31/2007 Zoster (Zostavax-ZVL, live) 09/28/2012 Social History Tobacco Use Types Packs/Day Years Used Date Smoking Tobacco: Every Day Cigarettes Comments:quit one year ago Alcohol Use Standard Drinks/Week Comments No 0 (1 standard drink = 0.6 oz pur e alcohol) Interpersonal Safety Answer Date Record ed Are you being hit, kicked, p ushed or yelled at (see row info)? 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 Gender Identity Not on file Sexual Orientation Not on file Obstetrics History Last Filed Vital Signs Vital Sign Reading Time Taken Comments Blood Pressure 158/84 07/12/2025 9:11 PM CDT Pulse 78 07/12/2025 9:11 PM CDT Temperature 36.5 C (97.7 F) 07/12/2025 7:30 PM CDT Respiratory Rate 16 07/12/2025 9:11 PM CDT Oxygen Saturation 96% 07/12/2025 9:11 PM CDT Inhaled Oxygen Concentration - - Weight 68 kg (150 lb) 07/12/2025 7:27 PM CDT Height 167.6 cm (5' 6) 07/12/2025 7:27 PM CDT Body Mass Index 24.21 07/12/2025 7:27 PM CDT Plan of Treatment Health Maintenance Due Date Last Done Comments Depression screening for age 12+ 1964 BMI (ht and wt on same day) for age 18+ 1970 Hepatitis C screening for age 18-79 1970 Pneumococcal series for age 50+ (1 of 2 - PCV) 1971 Lipids for age 45-75 1997 Mammogram for age 45-75 1997 RSV vaccine for adults or (1 - Risk 50-74 years 1-dose series) 2002 Zoster (shingles) series for age 50+ (2 of 3) 11/23/2012 09/28/2012 DEXA/DXA scan for age 65+ 2017 COVID-19 vaccine series ( season) 2025 07/29/2024, 01/26/2024, 08/31/2022, Additional history exists Influenza Vaccine (#1) 2025 2, 08/26/2011, 09/08/2009 Colonoscopy through age 75 04/11/2034 04/11/2024 Tetanus booster 07/12/2035 07/12/2025, 03/31/2007 Hepatitis B series for 19+ Aged Out N o longer eligible based on patient's age to complete this topic Medical Devices Implanted Type Area Metal Buffer Device Identifier Shelf Expiration Date Model / Serial / Lot Sling Miniarc Precise - [id number] Implanted:Qty: 1 on 09/27/2011 at [facility] [employer] 06/22/2014 [id number] / / [id number] Procedures Procedure Name Priority Date/Time Associated Diagnosis Comments COLONOSCOPY 04/11/2024 7:19 AM CDT from Last 3 Months or Most Recently Relevant to Health Maintenance Results * COLONOSCOPY (04/11/2024 7:19 AM CDT) 04/11/2024 7:19 AM CDT Narrative Transcriptions Joanne Dallas MD - 04/11/2024 8:38 AM CDT Patient Name: Eneida Melchor Procedure Date: 04/11/2024 Gender: Female Date of : 1950 Admit Type: Ambulatory Procedure: Colonoscopy Proceduralist: Joanne Payne MD Referring MD: Joanne Payne MD Indications/Pre-Op Diagnosis: Screening for colorectal malignant neoplasm, Positive cologuard. Rectal prolapse Medications: Monitored Anesthesia Care Procedure Description: The procedure, indications, potential complications, (bleeding, perforation, infection, adverse medication reaction, missed lesionsor polyps) and alternatives available were explained to the patient, who appeared to understand and indicated this. Opportunity for questionswas provided and informed consent obtained. The endoscope [id number] was passed through the anus and advanced to the cecum, identified by appendiceal orifice andileocecal valve. The colonoscopy was performed without difficulty. The patient tolerated the procedure well. The quality of the bowel preparationwas evaluated using the BBPS ([place] Bowel Preparation Scale) with scores of: Right Colon = 3, Transverse Colon = 3 and Left Colon = 3 (entire mucosa seen well with no residual staining, small fragments of stoolor opaque liquid). The total BBPS score equals 9. Complications: No immediate complications. Estimated blood loss: Minimal. Estimated Blood Loss & Specimen: Specimen collected: Yes and sent to Laboratory Findings: The perianal and digital rectal examinations were normal. Multiple diverticula were found in the sigmoid colon. Mucosa of ascending colon with minute areas of blood consistent with insufflation reaction. Biopsies taken with cold jumbo forceps for histology. Biopsies were taken with a cold forceps for histology. The exam was otherwise without abnormality on direct and retroflexion views. A scattered area of mildly erythematous mucosa was found in therectum. Consistent with irriation from chronic rectal prolapse Impressions/Post-Op Diagnosis: - Diverticulosis in the sigmoid colon. - The examination was otherwise normal on direct and retroflexionviews. - Erythematous mucosa in the rectum. Recommendation: - Await pathology results. - Dr. Pyane's office will call you with results and follow up instructions Moderate Sedation: see anesthesia report Joanne Payne MD 04/11/2024 8:38:09 AM This report has been signed electronically. Note Initiated On: 04/11/2024 7:19 AM Joanne Diallo MD PROCEDURE ORD Fin al Result from Last 3 Months or Most Recently Relevant to Health Maintenance Insurance [id number] [facility] [place] [id number] BLUE CROSS MEDICARE ADVANTAGE MR MEDICARE PART A HB ONLY Advance Directives * Full Code (Latest Code Status on File) Date Activated Date Inactivated Comments 04/11/2024 7:11 AM 04/11/2024 11:41 AM Question Answer Comments Code Status Discussion: Not Discussed * Full Code Date Activated Date Inactivated Comments 10/16/2012 9:07 AM 10/16/2012 2:24 PM * Full Code Date Activated Date Inactivated Comments 10/06/2012 7:52 AM 10/06/2012 7:54 PM * Full Code Date Activated Date Inactivated Comments 09/27/2011 2:42 PM 09/28/2011 2:57 PM * Full Code Date Activated Date Inactivated Comments 09/27/2011 10:26 AM 09/27/2011 2:42 PM Care Teams Automotive Teacher Relationship Specialty Start Date End Date Montse Lehman NP [address] [place] [address] PCP - General Nurse Practitioner - Family 03/22/24
[2025-10-29 14:11] VITALS: BP 175/104; PULSE 85; RESP 16; TEMP 36.8; O2SAT 92; BMI 27.8
--- NOTE | 2025-10-29 14:45 | CRLHL7_ITS ---
For Patients: As a result of the Century Cures Act, medical imaging exams and procedure reports are released immediately into your electronic medical record. You may view this report before your referring provider. If you have questions, please contact your health care provider. INDICATION: Episode of confusion TECHNIQUE: Head CT without contrast. COMPARISON: None. FINDINGS: CSF spaces: Within normal limits for age. Brain parenchyma and extra-axial spaces: There are nonspecific low attenuation white matter changes consistent with chronic microvascular disease. No sign of mass, hemorrhage, or midline shift. Skull base and calvarium: The visualized paranasal sinuses and mastoid air cells demonstrate no acute or significant findings. The visualized orbits are grossly unremarkable status post bilateral lens replacement. No skull fractures. IMPRESSION: 1. No acute intracranial abnormality. 2. Chronic white matter changes, likely chronic microvascular ischemic disease. Please note that all CT scans at this facility use dose modulation, iterative reconstruction, and/or weight-based dosing when appropriate to reduce radiation dose to as low as reasonably achievable. Dictated by Magali Gates MD @ 10/29/2025 3:24:29 PM (Electronically Signed)
--- NOTE | 2025-10-29 14:50 | ED.GENADULT ---
HPI - General Adult General Chief complaint: Neuro Symptoms/Altered Deficit Stated complaint: possible stroke this morning Time Seen by Provider: 10/29/25 14:08 History of Present Illness HPI narrative: This 75-year-old female comes in with her and daughter because of an episode of confusion that occurred this morning. This began at about 8:00 a.m. and initially she did not know how to run the microwave and did not know names of people in her family. She improved but had some residual symptoms lasting till about noon. She did not have any altered speech or unilateral weakness. She seems to be back to normal at this time. She did have a mental test performed by her primary physician earlier this year and there was no sign of dementia. The patient does not report any signs of infection and did not have any recent injury event and no change of medications. She arrives here with normal vital signs. She does report daily tension type headaches. She wakes without a headache and then as the day progresses she gets occipital pain. She also has occasional migraine headaches related to this. Related Data Home Medications ?Medication ?Instructions ?Recorded ?Confirmed ascorbic acid (vitamin C) 500 mg mg PO 06/08/24 07/02/25 capsule aspirin 81 mg tablet,delayed 81 mg PO QDAY 06/08/24 07/02/25 release biotin 5,000 mcg chewable tablet mcg PO 06/08/24 07/02/25 guaifenesin 400 mg tablet (Mucus 400 mg PO QID 06/08/24 07/02/25 Relief) melatonin 5 mg tablet 5 mg feeding tube QHS 06/08/24 07/02/25 multivitamin 1 tab PO QAM 06/08/24 07/02/25 omega 0-rve-oaq-fish oil 1,000 mg 1 cap PO QDAY 06/08/24 07/02/25 (120 mg-180 mg) capsule (Fish Oil) turmeric 400 mg capsule mg PO 06/08/24 07/02/25 zinc gluconate 50 mg tablet 50 mg PO QDAY 06/08/24 07/02/25 Previous Rx's ?Medication ?Instructions ?Recorded bisacodyl 10 mg rectal suppository 10 mg MD QDAY PRN constipation #30 06/08/24 (Dulcolax (bisacodyl)) ea acetaminophen 500 mg capsule 500 mg PO Q6H PRN #60 caps 08/17/24 cholecalciferol (vitamin D3) 50 50 mcg PO QDAY #90 caps 12/04/24 mcg (2,000 unit) capsule fluticasone propionate 110 2 puff inhalation BID #12 grams 12/04/24 mcg/actuation HFA aerosol inhaler calcium ER 600 mg (as carb,cit)-D3 2 tab PO .Q.day #180 tabs 04/09/25 12.5 mcg (500 unit) tablet, ext.rel (Citracal-D3 Slow Release) alendronate 70 mg tablet 70 mg PO QWEEK #12 tabs 07/02/25 celecoxib 200 mg capsule (Celebrex) 200 mg PO QDAY #90 caps 07/02/25 gabapentin 300 mg capsule 300 mg PO BID #180 caps 07/02/25 methocarbamol 500 mg tablet 500 mg PO BID #180 tabs 07/02/25 levothyroxine 50 mcg tablet 50 mcg PO QDAY #90 tabs 07/04/25 (Synthroid) pravastatin 20 mg tablet 20 mg PO DAILY #90 tabs 09/10/25 Allergies Allergy/AdvReac Type Severity Reaction Status Date / Time No Known Drug Allergies Allergy Verified 10/29/25 14:10 Review of Systems Status of ROS: Reports: 10 or more systems reviewed and unremarkable except as noted in History and below Narrative: Constitutional: No fevers, no weight gain or loss. Eyes: No discharge. No vision changes. HENT: No congestion, no sore throat, no ear pain. Cardiovascular: No chest pain, no palpitations. Respiratory: No shortness of breath, no wheezes, no cough. Gastrointestinal: No abdominal pain, no vomiting, no diarrhea. Genitourinary: No dysuria, no hematuria. Musculoskeletal: Normal range of motion. Skin: No rashes, no pruritis. Neurological: No dizziness, weakness, sensory change, speech change. Endo/Heme/Allergies: No bruising or bleeding. No polydipsia. Pysch: no suicidality, no anxiety, no insomnia. All other systems reviewed and are negative. [facility] Medical History (Updated 10/29/25 @ 15:55 by Geovany Dillon MD) Osteoporosis ?M81.0 - Age-related osteoporosis without current pathological fracture (ICD-10) Osteopenia ?M85.80 - Other specified disorders of bone density and structure, unspecified site (ICD-10) History of tobacco abuse ?Z87.891 - Personal history of nicotine dependence (ICD-10) Chronic bronchitis ?J42 - Unspecified chronic bronchitis (ICD-10) Headache ?R51.9 - Headache, unspecified (ICD-10) Hypercholesteremia ?E78.00 - Pure hypercholesterolemia, unspecified (ICD-10) Insomnia ?G47.00 - Insomnia, unspecified (ICD-10) Hypothyroidism ?E03.9 - Hypothyroidism, unspecified (ICD-10) Rectal prolapse ?K62.3 - Rectal prolapse (ICD-10) Compression fracture Back pain ?M54.9 - Dorsalgia, unspecified (ICD-10) Surgical History History of arthroscopy of right shoulder (08/17/24) ?Z98.890 - Other specified postprocedural states (ICD-10) Social History Smoking Status: Current every day smoker Do you use any of these nicotine containing products: Vaping Products How often do you have a drink containing alcohol: monthly or less Alcohol type: wine How many standard drinks containing alcohol do you have on a typical day: 5 or 6 How often do you have six or more drinks on one occasion: Never AUDIT-C Alcohol total score: 3 Non-prescribed substance use: denies use Caffeine: Yes Are you using contraception or practicing any form of control: No Exam Narrative: Exam Narrative: Constitutional: Well-developed, well-nourished, no acute distress. HEENT: Normocephalic, atraumatic. Neck: Normal range of motion. Nontender. Supple. Heart: Regular. No murmurs. Normal rate. Intact distal pulses. Lungs: Clear to auscultation. No chest discomfort. No wheezes, rhonchi, or rales. Abdomen: Normal bowel sounds. Nontender. No rebound tenderness. Genitalia: Deferred. Back: No midline tenderness. Normal range of motion. Extremities: Normal range of motion. No injury. Skin: Intact. No rash. Warm. No erythema or pallor. Neurologic: No altered sensation. No weakness. Alert and oriented. No facial asymmetry. Tongue is midline. [id number] is normal. No pronator drift. Portable Trackman strength is equal bilaterally. Able to raise each leg from the bed. Psychiatric: No suicidality. No anxiety or depression. No insomnia. Normal mentation. Nursing notes and vitals signs are reviewed. Const: Vital Signs, click to edit/add: Vital Signs - 24 hr 10/29/25 14:11 Temperature 98.2 F Pulse Rate [Pulse Oximeter] 85 Respiratory Rate 16 Blood Pressure [Ri ght Upper Arm] 175/104 H Pulse Oximetry 92 Oxygen Delivery Me thod Room Air Course Vital Signs Vital signs: Initial Vital Signs Temperature 98.2 F 10/29/25 14:11 Temperature Source Temporal Artery Scan 10/29/25 14:11 Pulse Rate 85 10/29/25 14:11 Respiratory Rate 16 10/29/25 14:11 Blood Pressure 175/104 H 10/29/25 14:11 Blood Pressure Mean 127 H 10/29/25 14:11 Pulse Oximetry 92 10/29/25 14:11 Oxygen Delivery Method Room Air 10/29/25 14:11 Vital Signs Temperature 98.2 F 10/29/25 14:11 Pulse Rate 85 10/29/25 14:11 Respiratory Rate 16 10/29/25 14:11 Blood Pressure 175/104 H 10/29/25 14:11 Pulse Oximetry 92 10/29/25 14:11 Oxygen Delivery Method Room Air 10/29/25 14:11 Temperature 98.2 F 10/29/25 14:11 Pulse Rate 85 10/29/25 14:11 Respiratory Rate 16 10/29/25 14:11 Blood Pressure 175/104 H 10/29/25 14:11 Pulse Oximetry 92 10/29/25 14:11 Oxygen Delivery Method Room Air 10/29/25 14:11 Medical Decision Making [facility] Narrative Medical decision making narrative: This patient comes in for evaluation of a time of confusion but otherwise no neurologic deficits. This occurred this morning and now she is returned back to her normal baseline function. I did obtain CT imaging of her head and labs and these all returned with reassuring results. Her neurologic exam and vital signs are also reassuring. The patient does have daily tension headaches. I did offer her a therapeutic injection overlying the occipital nerves and the patient agreed to have this done. She received injection of a total of 6 mL of fluid with 3 mL on either side of the nuchal ligament. The liquid included 125 mg of Solu-Medrol and about 4 mL of 2% lidocaine. She states that her headache seems better. More likely it will be the steroid that will take affect if she is going to have more long-term benefit from this. She is okay to be discharged home. Lab Data Labs: Lab Results 10/29/25 Range/Units 15:12 WBC 6.70 (4.50-11.00) K/uL RBC 4.09 (4.00-5.20) m/uL Hgb 13.2 (12.0-16.0) gm/dL Hct 40.6 (33.0-51.0) % MCV 99 (80-100) fL MCH 32 (26-34) pg MCHC 33 (32-36) gm/dL RDW Coeff of Jean Paul 13.6 (11.5-15.5) % Plt Count 216 (140-440) K/uL Neut % (Auto) 58.6 (42.0-72.0) % Lymph % (Auto) 24.3 (20-44) % [place] % (Auto) 11.9 H (0.0-11.0) % Eos % (Auto) 4.6 (0.0-7.0) % Baso % (Auto) 0.6 (0.0-3.0) % Neut # (Auto) 3.92 (1.7-7.0) K/uL Lymph # (Auto) 1.63 (0.90-2.90) K/uL [place] # (Auto) 0.80 (0.00-0.90) K/UL Eos # (Auto) 0.31 (0.00-0.50) K/uL Baso # (Auto) 0.04 (0.00-0.30) K/uL Abs Immat Gran (auto) 0.00 (0.00-0.30) K/uL Imm/Tot Granulo (auto) 0.0 % Sodium 137 (135-149) mmol/L Potassium 3.8 (3.6-5.1) mmol/L Chloride 98 (96-114) mmol/L Carbon Dioxide 27 (20-32) mmol/L Anion Gap 12 (7-15) mEq/L BUN 13 (7-30) mg/dL Creatinine 0.8 (0.5-1.5) mg/dL Estimated Creat Clear 39.63 Estimated GFR 78 ml/min Glucose 96 (60-115) mg/dL Calcium 9.7 (8.4-10.6) mg/dL Imaging Data CT scan - head: Radiologist's impression: 1. No acute intracranial abnormality. 2. Chronic white matter changes, likely chronic microvascular ischemic disease. Discharge Plan Discharge Clinical Impression: Acute confusion, Chronic tension headaches Patient Disposition: Home, Self-Care Condition: Stable Additional Instructions: Continue current plans. Follow up with MD or return if worsening. Prescriptions: No Action fluticasone propionate 110 mcg/actuation HFA aerosol inhaler 2 puff inhalation BID Qty: 12 12RF Rx Instructions: administer with spacer cholecalciferol (vitamin D3) 50 mcg (2,000 unit) capsule 50 mcg PO QDAY Qty: 90 3RF gabapentin 300 mg capsule 300 mg PO BID Qty: 180 3RF alendronate 70 mg tablet 70 mg PO QWEEK Qty: 12 3RF celecoxib [Celebrex] 200 mg capsule 200 mg PO QDAY Qty: 90 3RF methocarbamol 500 mg tablet 500 mg PO BID Qty: 180 3RF multivitamin Tablet 1 tab PO QAM turmeric 400 mg capsule PO ascorbic acid (vitamin C) 500 mg capsule PO guaifenesin [Mucus Relief] 400 mg tablet 400 mg PO QID zinc gluconate 50 mg tablet 50 mg PO QDAY omega 4-imt-fmb-fish oil [Fish Oil] 1,000 mg (120 mg-180 mg) capsule 1 cap PO QDAY aspirin 81 mg tablet,delayed release (DR/EC) 81 mg PO QDAY biotin 5,000 mcg tablet,chewable PO melatonin 5 mg tablet 5 mg feeding tube QHS bisacodyl [Dulcolax (bisacodyl)] 10 mg suppository 10 mg MD QDAY PRN (Reason: constipation) Qty: 30 1RF acetaminophen 500 mg capsule 500 mg PO Q6H PRNQty: 60 0RF calcium carb, citrate-vit D3 [Citracal-D3 Slow Release] 600 mg-12.5 mcg (500 unit) tablet extended release 2 tab PO .Q.day Qty: 180 4RF levothyroxine [Synthroid] 50 mcg tablet 50 mcg PO QDAY Qty: 90 1RF pravastatin 20 mg tablet 20 mg PO DAILY Qty: 90 2RF Follow Up/Referrals: Roberto Hendrickson MD [Primary Care Provider, Family Practice] Stand Alone Forms: [employer] Info Instructions
[2025-10-29 15:21] LABS: Hematocrit* 40.6 % (33.0-51.0); Hemoglobin* 13.2 gm/dL (12.0-16.0); Immature Granulocytes Abs Auto 0.00 K/uL (0.00-0.30); Immature Granulocytes Pct Auto 0.0 %; Lymphocytes Absolute Auto 1.63 K/uL (0.90-2.90); Mean Corpuscular HGB Conc 33 gm/dL (32-36); Mean Corpuscular Hemoglobin 32 pg (26-34); Mean Corpuscular Volume 99 fL (80-100); RDW Coefficient of Variation % 13.6 % (11.5-15.5); Red Blood Count* 4.09 m/uL (4.00-5.20); White Blood Count* 6.70 K/uL (4.50-11.00)
[2025-10-29 15:31] LABS: Slide Review Reflex No
[2025-10-29 15:36] LABS: Chloride* 98 mmol/L (96-114); Potassium* 3.8 mmol/L (3.6-5.1); Sodium* 137 mmol/L (135-149)
[2025-10-29 15:39] LABS: Anion Gap 12 mEq/L (7-15); Blood Urea Nitrogen* 13 mg/dL (7-30); Calcium* 9.7 mg/dL (8.4-10.6); Carbon Dioxide* 27 mmol/L (20-32); Creatinine* 0.8 mg/dL (0.5-1.5); Est. Creatinine Clearance* 39.63; Estimated Glomerular Filt Rate 78 ml/min; Glucose* 96 mg/dL (60-115)
[2025-10-29] MEDS: lidocaine HCL 2 % MULTIDOSE 20 ML VIAL INJECTION (15:57)
[2025-10-29] MEDS: METHYLPREDNISOLONE SOD SUCC 62.5 MG/ML (125) 125 MG IM (15:58)
== END 2025-10-29 16:04 | disposition home or self-care (01) ==
PROVIDERS: Emergency Provider Emergency Medicine Emergency Medical Services; PCP Family Medicine
DX: G44.209 Tension-type headache, unspecified, not intractable (principal)
CPT/HCPCS: 36415; 64405; 70450; 80048; 85025; 96372; 99284; J2919